=== PATIENT | female | born 1995 | race Caucasian/White ===

== ENCOUNTER 2018-06-05 10:26 | Inpatient (IN) ==
[2018-06-05] MEDS ORDERED: Isovue-370 500 ML BOTTLE IVP ONE (10:53)
[2018-06-05] MEDS ORDERED: Ketorolac 15 MG/ML VIAL IVP ONE (10:53)
[2018-06-05] MEDS ORDERED: Ondansetron 4 MG/2 ML VIAL IVP ONE (10:53)
[2018-06-05] MEDS ORDERED: 0.9 % Sodium Chloride 1,000 ML IVC ONE ×4 (10:53→18:42)
--- NOTE | 2018-06-05 10:58 | Emergency Department Note ---
Disposition Clinical Impression: Pyelonephritis Sepsis Qualifiers: Sepsis type: sepsis due to unspecified organism Qualified Code(s): A41.9 - Sepsis, unspecified organism Disposition: Admitted As Inpatient Condition: Fair Referrals: NONE,PCP [Primary Care Provider] - Forms: ED Satisfaction Letter General Adult HPI - General Chief complaint: ED Urogenital-Female Stated complaint: Kidney stone Time Seen by Provider: 06/05/18 10:31 Source: patient Limitations: no limitations Nursing Notes Reviewed: Yes Vital Signs Reviewed: Yes - History of Present Illness HPI Narrative: 23 year old female with history of kidney stone presents with right flank pain. She started right flank pain a week ago. It got very bad yesterday. Associate with nausea and vomited once at 11 pm last night. Pt felt some burning sensation at the end of urinating. Pt felt chills and temperature was 102 last night. Not No history of diabetes. Onset (ago): week(s) (1) Location: right Pain Scale: 8 Consistency: constant - Related Data Allergies Allergy/AdvReac Type Severity Reaction Status Date / Time Amoxicillin AdvReac Rash Verified 06/05/18 10:38 Constitutional: Reports: chills Eyes: Reports: eye pain ENT ED: Reports: ear pain Cardiovascular: Reports: chest pain Respiratory: Reports: cough Gastrointestinal: Reports: nausea, vomiting. Denies: abdominal pain Genitourinary: Reports: dysuria. Denies: urgency, frequency Musculoskeletal: Reports: back pain (right flank pain). Denies: neck pain Integumentary: Denies: rash Neurological: Denies: headache Psychiatric: Denies: anxiety Endocrine: Denies: fatigue Hematological/Lymphatic: Denies: easy bleeding Allergic/Immunologic: Denies: facial swelling Past Medical History - Past Medical History Medical history: Reports: kidney stones Psychiatric history: Reports: anxiety - Social History Smoking Status: Never smoker Smokeless Tobacco Status: No Alcohol use: Reports: occasionally Drug use: Reports: none Physical Exam - General Limitations: no limitations General appearance: alert, in no apparent distress - Head Head exam: atraumatic - Eye Eye exam: Present: normal appearance - ENT ENT exam: normal exam - Neck Neck exam: Present: normal inspection - Chest Chest inspection: Present: normal inspection - Respiratory Respiratory exam: Present: normal lung sounds bilaterally. Absent: respiratory distress, wheezes - Cardiovascular Cardiovascular exam: Present: tachycardia - Abdominal Exam Abdominal exam: Present: soft, tenderness Abdominal tenderness: Present: RUQ - Extremities Exam Extremities exam: Present: normal inspection, full ROM. Absent: tenderness - Back Exam Back exam: Present: normal inspection, full ROM, CVA tenderness (R) - Neurological Exam Neurological exam: Present: alert, oriented X3 - Psychiatric Psychiatric exam: Present: normal affect, normal mood - Skin Skin exam: Present: warm, intact Course Vital Signs Temperature 99.5 F 06/05/18 10:34 Pulse Rate 121 06/05/18 10:34 Respiratory Rate 16 06/05/18 10:34 Blood Pressure 88/59 06/05/18 10:34 O2 Sat by Pulse Oximetry 99 06/05/18 10:34 Temperature 99.5 F 06/05/18 10:34 Pulse Rate 105 06/05/18 13:11 Respiratory Rate 17 06/05/18 13:11 Blood Pressure 113/61 06/05/18 13:11 O2 Sat by Pulse Oximetry 100 06/05/18 13:11 Oxygen Delivery Oxygen Delivery Room Air Medical Decision Making - [facility] Narrative Medical decision making narrative: 23 year old female with history of kidney stone presents with right flank pain for a week and got worse since yesterday. Associate with nausea, vomiting, chills and fever. Physical exam: temperature 99.5, pulse 121, BP 88/59, RUQ tender to palpation, right CVA tender to percussion. Pt's presentation meet the criterial of sepsis, blood culture ordered, IV fluids, and antibiotics started. Labs: white cell 13. lactic acid negative. UA: large amount of blood and leukocyte. CT indicated: multifocal pylonepheritis. Karen Guadalupe has seen the patient and agrees to admit patient for further evaluation. - Lab Data Lab results reviewed: Yes I reviewed the patient's lab results. Result diagrams: 06/05/18 11:15 06/05/18 11:15 Lab Results 06/05/18 06/05/18 06/05/18 Range/Units 11:02 11:02 11:15 WBC 13.5 H (4.3-11.1) K/mcL RBC 4.61 (3.82-4.97) M/mcL Hgb 13.6 (11.5-15.4) g/dL Hct 39.7 (35.3-44.9) % MCV 86.1 (83.0-100.0) fL MCH 29.5 (28.0-33.3) pg MCHC 34.3 (31.6-35.5) g/dL RDW 12.0 (11.5-14.5) % Plt Count 197 (140-400) K/mcL MPV 9.6 (9.4-12.4) fL Immature Gran % 0.7 (0-4) % Seg Neutrophils % 85.4 % Lymphocytes % 7.8 % Monocytes % 5.9 % Eosinophils % 0.1 % Basophils % 0.1 % Neutrophils # 11.5 H (1.6-8.9) K/mcL Lymphocytes # 1.1 (0.6-4.6) K/mcL Monocytes # 0.8 (0.0-1.3) K/mcL Eosinophils # 0.0 (0.0-0.6) K/mcL Basophils # 0.0 (0.0-0.2) K/mcL Sodium (136-145) mEq/L Potassium (3.5-5.1) mEq/L Chloride (98-107) mEq/L Carbon Dioxide (23-29) mEq/L BUN (6-20) mg/dL Creatinine (0.60-1.20) mg/dL Est GFR ( Amer) (> 60) Est GFR (Non-Af Amer) (> 60) BUN/Creatinine Ratio (6-26) Glucose (70-105) mg/dL Calculated Osmolality (280-300) Lactic Acid (0.5-2.2) mmol/L Calcium (8.6-10.3) mg/dL Total Bilirubin (0.3-1.0) mg/dL AST (13-39) Units/L ALT (7-52) Units/L Alkaline Phosphatase (34-104) Units/L Serum Total Protein (6.4-8.9) g/dL Albumin (3.5-5.7) g/dL Globulin (2.4-3.5) g/dL Albumin/Globulin Ratio (1.1-2.2) Lipase (11-82) Units/L Urine Color Dark Yellow (Yellow) Urine Clarity Turbid A (Clear) Urine pH 6.0 (5.0-8.0) pH Units Ur Specific [place] 1.015 (1.010-1.025) Urine Protein >=300 H (Neg-Trace) mg/dL Urine Glucose (UA) Normal (Normal) mg/dL Urine Ketones 15 H (Negative) mg/dL Urine Blood Large H (Negative) Urine Nitrite Negative (Negative) Urine Bilirubin Negative (Negative) Urine Urobilinogen Normal (Normal) mg/dL Ur Leukocyte Esterase Large H (Negative) Urine Microscopic RBC 0-3 (0-3) per hpf Urine Microscopic WBC TNTC H (0-3) per hpf Ur Squamous Epith Cells Many H (None-Few) per lpf Amorphous Sediment Moderate H (Few) Urine Bacteria Moderate H (None-Few) per hpf Urine Mucus Few (Few) Urine Yeast Test Not Performed Ur Culture Indicated? NO. A (NO) Urine Test Negative (Negative) 06/05/18 06/05/18 Range/Units 11:15 11:17 WBC (4.3-11.1) K/mcL RBC (3.82-4.97) M/mcL Hgb (11.5-15.4) g/dL Hct (35.3-44.9) % MCV (83.0-100.0) fL MCH (28.0-33.3) pg MCHC (31.6-35.5) g/dL RDW (11.5-14.5) % Plt Count (140-400) K/mcL MPV (9.4-12.4) fL Immature Gran % (0-4) % Seg Neutrophils % % Lymphocytes % % Monocytes % % Eosinophils % % Basophils % % Neutrophils # (1.6-8.9) K/mcL Lymphocytes # (0.6-4.6) K/mcL Monocytes # (0.0-1.3) K/mcL Eosinophils # (0.0-0.6) K/mcL Basophils # (0.0-0.2) K/mcL Sodium 136 (136-145) mEq/L Potassium 3.3 L (3.5-5.1) mEq/L Chloride 101 (98-107) mEq/L Carbon Dioxide 23 (23-29) mEq/L BUN 8 (6-20) mg/dL Creatinine 0.91 (0.60-1.20) mg/dL Est GFR ( Amer) > 60 (> 60) Est GFR (Non-Af Amer) > 60 (> 60) BUN/Creatinine Ratio 9 (6-26) Glucose 138 H (70-105) mg/dL Calculated Osmolality 283 (280-300) Lactic Acid 1.7 (0.5-2.2) mmol/L Calcium 9.3 (8.6-10.3) mg/dL Total Bilirubin 1.6 H (0.3-1.0) mg/dL AST 11 L (13-39) Units/L ALT 8 (7-52) Units/L Alkaline Phosphatase 65 (34-104) Units/L Serum Total Protein 7.1 (6.4-8.9) g/dL Albumin 4.5 (3.5-5.7) g/dL Globulin 2.6 (2.4-3.5) g/dL Albumin/Globulin Ratio 1.7 (1.1-2.2) Lipase 6 L (11-82) Units/L Urine Color (Yellow) Urine Clarity (Clear) Urine pH (5.0-8.0) pH Units Ur Specific [place] (1.010-1.025) Urine Protein (Neg-Trace) mg/dL Urine Glucose (UA) (Normal) mg/dL Urine Ketones (Negative) mg/dL Urine Blood (Negative) Urine Nitrite (Negative) Urine Bilirubin (Negative) Urine Urobilinogen (Normal) mg/dL Ur Leukocyte Esterase (Negative) Urine Microscopic RBC (0-3) per hpf Urine Microscopic WBC (0-3) per hpf Ur Squamous Epith Cells (None-Few) per lpf Amorphous Sediment (Few) Urine Bacteria (None-Few) per hpf Urine Mucus (Few) Urine Yeast Ur Culture Indicated? (NO) Urine Test (Negative) - Radiology Data Radiology results reviewed: Yes I reviewed the patient's radiology results. CT/CT abd pelvis w iv no oral IMPRESSION: 1. Multifocal pyelonephritis of the right kidney, which also involves the right ureter and likely the bladder. Correlation with urinary analysis and cultures is suggested. 2. Nonobstructive bilateral nephrolithiasis. 3. Multiple indeterminate hypodense splenic lesions, which measure up to 1.3 cm in size. These are most likely benign, with multiple splenic hemangiomas a consideration. CT follow-up to document stability, or further evaluation with MRI, is recommended. D/ / Marcelo Andrade MD / Marcelo Andrade MD Interpreting Provider: Marcelo Andrade MD Attestation Statement - Attestation Attestation: I, Zain Haywood, examined this patient and my medical decision-making was reviewed with the WAREHOUSE DELIVERY DRIVER/PA/Advanced Practice Nurse/Resident Physician. I agree with the documented findings, disposition and treatment plan as described except to the extent set forth below. 23-year-old female presents emergency Department with concerns of right flank pain. Patient states pain is been present over the past week however became significantly worse last night. Patient has been vomiting throughout the night. She was hypotensive on initial evaluation, she is tachycardic. She took Flomax yesterday prior to the onset of her symptoms. Patient has a history of kidney stones in the past and this feels similar to that. Patient reports being febrile last night to 102. Denies dysuria or hematuria. Patient states the pain is in the right back and right flank, denies abdominal pain. Denies chest pain or shortness of breath palpitations. Has not syncopized. Denies vaginal bleeding or vaginal discharge. Has a history of multiple stones but has history of multiple stones in the past but has not required procedural intervention in the past. Follows a urologist in [place]. Patient has urinary tract infection on urinalysis. She was given ceftriaxone. Patient has CT of the abdomen and pelvis pending
[2018-06-05 11:16] LABS: Bilirubin,Urine Negative (Negative); Blood,Urine Large (Negative); Clarity,Urine Turbid (Clear); Color,Urine Dark Yellow (Yellow); Glucose,Urine (UA) Normal (Normal); Ketones,Urine 15 mg/dL (Negative); Leukocyte Esterase,Urine Large (Negative); Nitrite,Urine Negative (Negative); Protein,Urine >=300 mg/dL (Neg-Trace); Specific Gravity,Urine 1.015 (1.010-1.025); Urobilinogen,Urine Normal (Normal)
[2018-06-05 11:18] LABS: Bacteria,Urine Moderate per hpf (None-Few); Squamous Epithelial Cell,Urine Many per lpf (None-Few); WBC,Urine TNTC per hpf (0-3)
[2018-06-05 11:31] LABS: Basophils % 0.1 %; Eosinophils % 0.1 %; Hematocrit 39.7 % (35.3-44.9); Hemoglobin 13.6 g/dL (11.5-15.4); Immature Granulocytes % 0.7 % (0-4); Lymphocytes # 1.1 K/mcL (0.6-4.6); Lymphocytes % 7.8 %; Mean Corpuscular HGB Conc 34.3 g/dL (31.6-35.5); Mean Corpuscular Hemoglobin 29.5 pg (28.0-33.3); Mean Corpuscular Volume 86.1 fL (83.0-100.0); Mean Platelet Volume 9.6 fL (9.4-12.4); Monocytes # 0.8 K/mcL (0.0-1.3); Monocytes % 5.9 %; Neutrophils # 11.5 K/mcL (1.6-8.9); Platelet Count 197 K/mcL (140-400); Red Blood Count 4.61 M/mcL (3.82-4.97); Segmented Neutrophils % 85.4 %
[2018-06-05 11:41] LABS: Amorphous Sediment,Urine Moderate (Few); Mucus,Urine Few (Few); RBC,Urine 0-3 per hpf (0-3)
[2018-06-05 11:51] LABS: Alanine Aminotransferase 8 Units/L (7-52); Albumin 4.5 g/dL (3.5-5.7); Albumin/Globulin Ratio 1.7 (1.1-2.2); Alkaline Phosphatase 65 Units/L (34-104); Aspartate Amino Transferase 11 Units/L (13-39); BUN/Creatinine Ratio 9 (6-26); Bilirubin,Total 1.6 mg/dL (0.3-1.0); Blood Urea Nitrogen 8 mg/dL (6-20); Calcium 9.3 mg/dL (8.6-10.3); Carbon Dioxide 23 mEq/L (23-29); Chloride 101 mEq/L (98-107); Globulin 2.6 g/dL (2.4-3.5); Glucose 138 mg/dL (70-105); Lipase 6 Units/L (11-82); Osmolality,Calculated 283 (280-300); Potassium 3.3 mEq/L (3.5-5.1); Sodium 136 mEq/L (136-145); Total Protein 7.1 g/dL (6.4-8.9); eGFR For Non-African Americans > 60 (> 60)
[2018-06-05] MEDS ORDERED: Levofloxacin 750 MG/150 ML 750 MG/150 ML BAG IVPB ONE (11:51)
[2018-06-05] MEDS ORDERED: *HR* FentaNYL (PF) 100 MCG/2 ML VIAL IVP ONE (13:12)
--- NOTE | 2018-06-05 14:36 | Internal Med History&Physical ---
Date of Encounter: 06/05/18 Time of Encounter: 14:46 Internal Medicine - H&P: HPI Chief complaint: nausea, vomiting, chills Admitted From: Home Plans for Post Hospital Care: Home History of present illness: Ms. Brizuela is a 23 year old female past medical history of anxiety, depression and kidney stones come in with complain of fevers chills nausea and vomiting for last 24 hours. Patient mentioned she started having right-sided back pain for about 3-5 days. However past 24 hours she started having nausea vomiting and chills and fever which she measured to be 102.4. Her back pain has also significantly worsened over the past 1-2 days. She has history of kidney stones and was seen by urology in past. Last kidney stone was few months ago. Denies any use of antibiotic in the past 3-4 months. Has allergy to amoxicillin and sulfa medication. Does have family history of kidney stone in father. Denies any difficulty breathing, chest pain, abdominal pain, difficulty passing urine or stool. Denies any diarrhea. Patient had labwork done in ER showed white count of 13.3 potassium 3.3 lactic acid 1.7, urine with significant protein and immaterial. Patient has CT abdomen and pelvis which showed multifocal pyelonephritis on the right kidney, hypodense lesions in the spleen and nonobstructive bilateral nephrolithiasis. Past Med Surg Social Fam HX - Past Medical History Medical history: kidney stones Psychiatric history: anxiety, depression - Past Surgical History Additional surgical history: ovarian cyst removed - Social History Smoking Status: Never smoker Smokeless Tobacco Status: No Alcohol use: occasionally Drug use: none - Additional Family History Additional family history: Father with HTN and kidney stones Internal Medicine - H&P: Meds Sertraline [Zoloft] 50 mg PO DAILY 06/05/18 [History] Allergy/AdvReac Type Severity Reaction Status Date / Time Amoxicillin AdvReac Rash Verified 06/05/18 10:38 All Systems PM: A 10-system review of systems was performed and is negative for pertinent findings except as documented above in the HPI. - Constitutional Vitals: Temp Pulse Resp BP Pulse Ox 99.5 F 105 17 113/61 100 06/05/18 10:34 06/05/18 13:11 06/05/18 13:11 06/05/18 13:11 06/05/18 13:11 Exam: Constitutional: Vitals as noted. Conversant. mild distress due to pain and chills Eyes : Sclera white, conjunctiva clear, no lid lag, PEARLA. ENT : Grossly normal hearing. Oropharyngeal exam unremarkable. Moist mucus membranes. No JVD, no cervical lymphadenopathy. no thyromegaly or mass. Respiratory : Clear to auscultation bilaterally. No accessory muscle use, rales, rhonchi or wheezes Cardiovascular : tachycardic, +S1, +S2. no murmur, gallop, rubs. No chest wall tenderness GI/Abdominal : Soft, Non-distended, normal bowel sounds, Rt CVA tenderness. Musculoskeletal: no deformity noted. no edema or cyanosis. warm extremities, pulses palpable and symmetrical in UE/LE. no calf tenderness. Neurological: AO X3, CN II-XII grossly intact, grossly normal motor and sensory exam. Skin: No skin rash, lesions or ulcers noted. Internal Med - H&P Results - Labs CBC & Chem 7: 06/05/18 11:15 06/05/18 11:15 Labs: Short CBC 06/05/18 Range/Units 11:15 WBC 13.5 H (4.3-11.1) K/mcL Hgb 13.6 (11.5-15.4) g/dL Hct 39.7 (35.3-44.9) % Plt Count 197 (140-400) K/mcL Neutrophils # 11.5 H (1.6-8.9) K/mcL BMP 06/05/18 11:15 Sodium 136 Potassium 3.3 L Chloride 101 Carbon Dioxide 23 BUN 8 Creatinine 0.91 Glucose 138 H Calcium 9.3 Liver Function 06/05/18 Range/Units 11:15 Total Bilirubin 1.6 H (0.3-1.0) mg/dL AST 11 L (13-39) Units/L ALT 8 (7-52) Units/L Alkaline Phosphatase 65 (34-104) Units/L Albumin 4.5 (3.5-5.7) g/dL Urine 06/05/18 Range/Units 11:02 Urine Color Dark Yellow (Yellow) Urine Clarity Turbid A (Clear) Urine pH 6.0 (5.0-8.0) pH Units Ur Specific [place] 1.015 (1.010-1.025) Urine Protein >=300 H (Neg-Trace) mg/dL Urine Glucose (UA) Normal (Normal) mg/dL - Impressions ITS Impressions Abdomen/Pelvis CT 06/05/18 10:53 IMPRESSION: 1. Multifocal pyelonephritis of the right kidney, which also involves the right ureter and likely the bladder. Correlation with urinary analysis and cultures is suggested. 2. Nonobstructive bilateral nephrolithiasis. 3. Multiple indeterminate hypodense splenic lesions, which measure up to 1.3 cm in size. These are most likely benign, with multiple splenic hemangiomas a consideration. CT follow-up to document stability, or further evaluation with MRI, is recommended. D/ / 06/05/2018 13:41:31 Marcelo Andrade MD / doris Interpreting Provider: Marcelo Andrade MD - Assessment and plan (1) Sepsis Current Visit: Yes Status: Acute Assessment and plan: - Likely related to pyelonephritis - We will do 1 more liter of dermal saline and continue LR at 100/hr - Continue Levaquin - Follow-up urine and blood cultures. Monitor closely for next 24-48 hours. May have 2 broaden coverage if continues to have fevers given the previous kidney stones. Qualifiers: Sepsis type: sepsis due to unspecified organism Qualified Code(s): A41.9 - Sepsis, unspecified organism (2) Hypokalemia Current Visit: Yes Status: Acute Assessment and plan: - repelted (3) Anxiety and depression Current Visit: Yes Status: Acute Assessment and plan: Continue home medications (4) Pyelonephritis Current Visit: Yes Status: Acute Assessment and plan: As above - Time Spent With Patient Total time spent is greater than 50% in coordination of care (as documented) at patient's floor/unit and/or counseling patient:
[2018-06-05] MEDS ORDERED: Naloxone 0.4 MG/ML INJ IVP PRN (14:46)
[2018-06-05] MEDS ORDERED: *HR* FentaNYL (PF) 100 MCG/2 ML VIAL IVP PRN (14:49)
[2018-06-05] MEDS ORDERED: Ketorolac 15 MG/ML VIAL IM PRN (14:49)
[2018-06-05] MEDS ORDERED: Ondansetron 4 MG/2 ML VIAL IVP PRN (14:50)
[2018-06-05] MEDS: Acetaminophen 325 MG TABLET PO PRN ×2 (14:55→20:22)
[2018-06-05] MEDS: Ringers Solution, Lactated 1,000 ML IVC SCH (17:35)
[2018-06-05] MEDS: Ketorolac 15 MG/ML VIAL IVP PRN (18:58)
[2018-06-06] MEDS: Acetaminophen 325 MG TABLET PO PRN ×3 (02:25→19:01)
[2018-06-06] MEDS: Ringers Solution, Lactated 1,000 ML IVC SCH ×2 (04:00→14:31)
[2018-06-06 07:17] LABS: Basophils % 0.3 %; Eosinophils % 0.2 %; Hematocrit 33.8 % (35.3-44.9); Immature Granulocytes % 0.7 % (0-4); Lymphocytes # 1.3 K/mcL (0.6-4.6); Lymphocytes % 12.5 %; Mean Corpuscular HGB Conc 33.4 g/dL (31.6-35.5); Mean Corpuscular Hemoglobin 29.8 pg (28.0-33.3); Mean Corpuscular Volume 89.2 fL (83.0-100.0); Mean Platelet Volume 9.7 fL (9.4-12.4); Monocytes # 0.7 K/mcL (0.0-1.3); Monocytes % 6.6 %; Neutrophils # 8.4 K/mcL (1.6-8.9); Platelet Count 149 K/mcL (140-400); Red Blood Count 3.79 M/mcL (3.82-4.97); Red Cell Distribution Width 12.3 % (11.5-14.5); Segmented Neutrophils % 79.7 %
[2018-06-06 07:23] LABS: Hemoglobin 11.3 g/dL (11.5-15.4)
[2018-06-06 07:36] LABS: BUN/Creatinine Ratio 11 (6-26); Blood Urea Nitrogen 9 mg/dL (6-20); Calcium 8.5 mg/dL (8.6-10.3); Carbon Dioxide 22 mEq/L (23-29); Chloride 110 mEq/L (98-107); Glucose 108 mg/dL (70-105); Osmolality,Calculated 287 (280-300); Potassium 4.1 mEq/L (3.5-5.1); Sodium 139 mEq/L (136-145); eGFR For Non-African Americans > 60 (> 60)
[2018-06-06] MEDS: Ketorolac 15 MG/ML VIAL IVP PRN ×2 (08:04→18:25)
[2018-06-06] MEDS: Levofloxacin 750 MG/150 ML 750 MG/150 ML BAG IVPB SCH (08:04)
--- NOTE | 2018-06-06 10:03 | Internal Med Progress Note ---
Hospitalist Progress Note - Encounter Date of Encounter: 06/06/18 Time of Encounter: 10:03 - Subjective Interval History: Patient was seen and examined at bedside currently states her pain is controlled has been tolerating oral intake. Did discuss treatment plan the patient verbalized understanding - Exam Vitals: Temp Pulse Resp BP Pulse Ox 98.9 F 92 15 100/67 99 06/06/18 06:29 06/06/18 06:29 06/06/18 06:29 06/06/18 06:29 06/06/18 06:29 Exam: Constitutional: Vitals as noted. Conversant. mild distress due to pain and chills Eyes : Sclera white, conjunctiva clear, no lid lag, PEARLA. ENT : Grossly normal hearing. Oropharyngeal exam unremarkable. Moist mucus membranes. No JVD, no cervical lymphadenopathy. no thyromegaly or mass. Respiratory : Clear to auscultation bilaterally. No accessory muscle use, rales, rhonchi or wheezes Cardiovascular : tachycardic, +S1, +S2. no murmur, gallop, rubs. No chest wall tenderness GI/Abdominal : Soft, Non-distended, normal bowel sounds, Rt CVA tenderness. Musculoskeletal: no deformity noted. no edema or cyanosis. warm extremities, pulses palpable and symmetrical in UE/LE. no calf tenderness. Neurological: AO X3, CN II-XII grossly intact, grossly normal motor and sensory exam. Skin: No skin rash, lesions or ulcers noted. - Assessment and Plan (1) Sepsis Current Visit: Yes Status: Acute Assessment and Plan: - Likely related to pyelonephritis - We will do 1 more liter of dermal saline and continue LR at 100/hr - Continue Levaquin - Follow-up urine and blood cultures. Monitor closely for next 24-48 hours. May have 2 broaden coverage if continues to have fevers given the previous kidney stones. 06/06 Patient states she feels much improved today-white count is down no fever Urine and blood cultures are pending Continue with Levaquin (2) Pyelonephritis Current Visit: Yes Status: Acute Assessment and Plan: Patient states she is much improved today eating and tolerating oral intake Pain currently controlled Continue with Zofran for nausea Continue with Levaquin blood cultures and urine cultures are pending (3) Hypokalemia Current Visit: Yes Status: Acute Assessment and Plan: - Resolved continue to monitor and replace as needed (4) Anxiety and depression Current Visit: Yes Status: Acute Assessment and Plan: Continue home medications - Time Spent with Patient Total time spent is greater than 50% in coordination of care (as documented) at patient's floor/unit and/or counseling patient: Internal Medicine: Result - Labs CBC & Chem 7: 06/06/18 07:06 06/06/18 07:06 Labs: Short CBC 06/05/18 06/06/18 Range/Units 11:15 07:06 WBC 13.5 H 10.6 (4.3-11.1) K/mcL Hgb 13.6 11.3 L D (11.5-15.4) g/dL Hct 39.7 33.8 L (35.3-44.9) % Plt Count 197 149 (140-400) K/mcL Neutrophils # 11.5 H 8.4 (1.6-8.9) K/mcL BMP 06/05/18 06/06/18 11:15 07:06 Sodium 136 139 Potassium 3.3 L 4.1 Chloride 101 110 H Carbon Dioxide 23 22 L BUN 8 9 Creatinine 0.91 0.85 Glucose 138 H 108 H Calcium 9.3 8.5 L Liver Function 06/05/18 Range/Units 11:15 Total Bilirubin 1.6 H (0.3-1.0) mg/dL AST 11 L (13-39) Units/L ALT 8 (7-52) Units/L Alkaline Phosphatase 65 (34-104) Units/L Albumin 4.5 (3.5-5.7) g/dL Urine 06/05/18 Range/Units 11:02 Urine Color Dark Yellow (Yellow) Urine Clarity Turbid A (Clear) Urine pH 6.0 (5.0-8.0) pH Units Ur Specific [place] 1.015 (1.010-1.025) Urine Protein >=300 H (Neg-Trace) mg/dL Urine Glucose (UA) Normal (Normal) mg/dL - Impressions Impressions Abdomen/Pelvis CT 06/05/18 10:53 IMPRESSION: 1. Multifocal pyelonephritis of the right kidney, which also involves the right ureter and likely the bladder. Correlation with urinary analysis and cultures is suggested. 2. Nonobstructive bilateral nephrolithiasis. 3. Multiple indeterminate hypodense splenic lesions, which measure up to 1.3 cm in size. These are most likely benign, with multiple splenic hemangiomas a consideration. CT follow-up to document stability, or further evaluation with MRI, is recommended. D/ / 06/05/2018 13:41:31 Marcelo Andrade MD / doris Interpreting Provider: Marcelo Andrade MD - VTE Reasons for not Prescribing Prophylaxis: Treatment not Indicated - Low risk for VTE Consult Discharge Plan - Plan Referrals: NONE,PCP [Primary Care Provider] - (1) Sepsis Qualifiers: Sepsis type: sepsis due to unspecified organism Qualified Code(s): A41.9 - Sepsis, unspecified organism
[2018-06-06] MEDS ORDERED: *HR* OxyCODONE Immed Rel 5 MG TABLET PO PRN (12:33)
[2018-06-06] MEDS ORDERED: *HR* Promethazine 25 MG/ML VIAL IVP PRN (21:23)
[2018-06-06] MEDS: *HR* HYDROcodone/Acet 5/325 mg TABLET PO PRN (22:30)
[2018-06-07] MEDS: Ringers Solution, Lactated 1,000 ML IVC SCH (00:12)
[2018-06-07] MEDS: Acetaminophen 325 MG TABLET PO PRN ×2 (04:07→17:21)
[2018-06-07] MEDS ORDERED: Ibuprofen 600 MG TABLET PO ONE (04:18)
[2018-06-07 07:42] LABS: Basophils % 0.2 %; Eosinophils % 0.5 %; Hematocrit 30.8 % (35.3-44.9); Hemoglobin 10.5 g/dL (11.5-15.4); Immature Granulocytes % 0.6 % (0-4); Lymphocytes # 0.7 K/mcL (0.6-4.6); Lymphocytes % 11.1 %; Mean Corpuscular HGB Conc 34.1 g/dL (31.6-35.5); Mean Corpuscular Hemoglobin 29.7 pg (28.0-33.3); Mean Corpuscular Volume 87.3 fL (83.0-100.0); Mean Platelet Volume 10.2 fL (9.4-12.4); Monocytes # 0.5 K/mcL (0.0-1.3); Monocytes % 6.9 %; Neutrophils # 5.4 K/mcL (1.6-8.9); Platelet Count 159 K/mcL (140-400); Red Blood Count 3.53 M/mcL (3.82-4.97); Red Cell Distribution Width 12.2 % (11.5-14.5); Segmented Neutrophils % 80.7 %
[2018-06-07 07:45] LABS: BUN/Creatinine Ratio 7 (6-26); Blood Urea Nitrogen 5 mg/dL (6-20); Calcium 8.3 mg/dL (8.6-10.3); Carbon Dioxide 23 mEq/L (23-29); Chloride 106 mEq/L (98-107); Glucose 92 mg/dL (70-105); Osmolality,Calculated 283 (280-300); Potassium 3.5 mEq/L (3.5-5.1); Sodium 138 mEq/L (136-145); eGFR For Non-African Americans > 60 (> 60)
[2018-06-07] MEDS: *HR* HYDROcodone/Acet 5/325 mg TABLET PO PRN (07:58)
[2018-06-07] MEDS: Levofloxacin 750 MG/150 ML 750 MG/150 ML BAG IVPB SCH (07:58)
--- NOTE | 2018-06-07 14:09 | Internal Med Progress Note ---
Hospitalist Progress Note - Encounter Date of Encounter: 06/07/18 Time of Encounter: 09:00 - Subjective Interval History: Patient still have fever overnight. No nausea or vomiting. Improved the right flank pain. Denies dysuria. - Exam Vitals: Temp Pulse Resp BP Pulse Ox 97.8 F 61 16 156/80 92 06/07/18 11:17 06/07/18 11:17 06/07/18 11:17 06/07/18 11:17 06/07/18 11:17 Exam: Constitutional: Vitals as noted. Conversant. in NAD Eyes : Sclera white, conjunctiva clear, no lid lag, PEARLA. ENT : Grossly normal hearing. Oropharyngeal exam unremarkable. Moist mucus membranes. No JVD, no cervical lymphadenopathy. no thyromegaly or mass. Respiratory : Clear to auscultation bilaterally. No accessory muscle use, rales, rhonchi or wheezes Cardiovascular : tachycardic, +S1, +S2. no murmur, gallop, rubs. No chest wall tenderness GI/Abdominal : Soft, Non-distended, normal bowel sounds, Rt CVA tenderness. Musculoskeletal: no deformity noted. no edema or cyanosis. warm extremities, pulses palpable and symmetrical in UE/LE. no calf tenderness. Neurological: AO X3, CN II-XII grossly intact, grossly normal motor and sensory exam. Skin: No skin rash, lesions or ulcers noted. - Assessment and Plan (1) Pyelonephritis Current Visit: Yes Status: Acute Assessment and Plan: Patient states she is much improved, still has fever Pain currently controlled Continue with Zofran for nausea Continue with Levaquin. blood cultures is pending. Urine culture shows non- diagnostic. Will continue current antibiotic as patient's symptoms has improved on Levaquin. CT abdomen shows no hydronephrosis/obstruction (2) Sepsis Current Visit: Yes Status: Acute Assessment and Plan: Due to pyelonephritis. WBC and HRget down, resolved now (3) Hypokalemia Current Visit: Yes Status: Acute Assessment and Plan: - Resolved continue to monitor and replace as needed (4) Anxiety and depression Current Visit: Yes Status: Acute Assessment and Plan: Continue home medications DVT Prophylaxis: Patient is young and ambulating well. Encourage ambulation. Expect short hospitalization - Time Spent with Patient Total time spent is greater than 50% in coordination of care (as documented) at patient's floor/unit and/or counseling patient: 30 minutes 25 - 35 minutes Plan of Care Discussed with: patient Internal Medicine: Result - Labs CBC & Chem 7: 06/07/18 06:31 06/07/18 06:31 Labs: Short CBC 06/07/18 Range/Units 06:31 WBC 6.7 (4.3-11.1) K/mcL Hgb 10.5 L (11.5-15.4) g/dL Hct 30.8 L (35.3-44.9) % Plt Count 159 (140-400) K/mcL Neutrophils # 5.4 (1.6-8.9) K/mcL BMP 06/07/18 06:31 Sodium 138 Potassium 3.5 Chloride 106 Carbon Dioxide 23 BUN 5 L Creatinine 0.70 Glucose 92 Calcium 8.3 L - VTE Reasons for not Prescribing Prophylaxis: Treatment not Indicated - Low risk for VTE Consult Discharge Plan - Plan Referrals: NONE,PCP [Primary Care Provider] - (2) Sepsis Qualifiers: Sepsis type: sepsis due to unspecified organism Qualified Code(s): A41.9 - Sepsis, unspecified organism
[2018-06-08] MEDS: Acetaminophen 325 MG TABLET PO PRN (03:10)
[2018-06-08 05:19] LABS: Basophils % 0.3 %; Eosinophils % 0.3 %; Hematocrit 31.7 % (35.3-44.9); Hemoglobin 10.8 g/dL (11.5-15.4); Immature Granulocytes % 0.7 % (0-4); Lymphocytes # 0.9 K/mcL (0.6-4.6); Lymphocytes % 14.8 %; Mean Corpuscular HGB Conc 34.1 g/dL (31.6-35.5); Mean Corpuscular Hemoglobin 29.2 pg (28.0-33.3); Mean Corpuscular Volume 85.7 fL (83.0-100.0); Monocytes # 0.5 K/mcL (0.0-1.3); Monocytes % 7.6 %; Neutrophils # 4.5 K/mcL (1.6-8.9); Platelet Count 184 K/mcL (140-400); Red Cell Distribution Width 12.2 % (11.5-14.5); Segmented Neutrophils % 76.3 %
[2018-06-08] MEDS: Levofloxacin 750 MG/150 ML 750 MG/150 ML BAG IVPB SCH (08:13)
[2018-06-08] MEDS ORDERED: levoFLOXacin 500 MG TABLET PO ONE (09:38)
[2018-06-08 10:50] VITALS: BP 115/77
--- NOTE | 2018-06-08 11:18 | Discharge Summary ---
- NOTES TO OUTPATIENT PROVIDER Notes to Outpatient Provider: 1. Cont po levaquin 750mg daily for 7 more days to finish a 10 day course. Orders not resulted at time of discharge: Pending orders 06/05/18 11:15 Culture,Blood [BC] Stat Date of Encounter: 06/08/18 Time of Encounter: 10:00 - Discharge Diagnosis (1) Pyelonephritis Priority: Primary Status: Acute (2) Sepsis Priority: Primary Status: Acute Qualifiers: Sepsis type: sepsis due to unspecified organism Qualified Code(s): A41.9 - Sepsis, unspecified organism (3) Hypokalemia Priority: Secondary Status: Acute (4) Anxiety and depression Priority: Secondary Status: Acute Hospital course: Ms. Brizuela is a 23 year old female present to ER for right-sided flank pain, nausea and vomiting with fever. Urinalysis shows UTI. Abdominal CT shows right side pyelonephritis, no obstruction. Patient was treated with IV Levaquin. After treatment, her condition has improved. No further flank pain , nausea, or vomiting. WBC get down to normal. Still have Naeem fever but general condition has improved and I believe patient can be treated with by mouth antibiotic as outpatient. Will DC patient home with by mouth Levaquin to finish a ten-day course. Patient was advised to come back to ER if condition getting worse. I have seen and examined the patient today. Denies flank pain, nausea. Has good intake. Vitals are stable. Encourage patient to drink water for self hydration. Will DC patient home with by mouth Levaquin. Discharge discussed with: patient - Time Spent with Patient Total time spent providing and/or coordinating discharge services: 40 minutes Greater than 30 minutes - Discharge Medications Prescriptions: Acetaminophen [Tylenol] 650 mg PO Q6HR PRN 3 Days #24 tablet PRN Reason: Mild Pain/Fever levoFLOXacin [Levaquin] 750 mg PO DAILY 7 Days #7 tablet Home Medications: Sertraline [Zoloft] 50 mg PO DAILY 06/05/18 [History] Calcium Carbonate/Vitamin D3 [Calcium 500 + Vit D Caplet] 1 tab PO DAILY 06/06/18 [History] Cetirizine HCl [Zyrtec] 10 mg PO DAILY 06/06/18 [History] Cyanocobalamin/Folic Acid [B-12 1,000 Mcg Sub Tablet] 1 tab SL DAILY 06/06/18 [History] Medroxyprogesterone Acetate [Depo-Provera] 150 mg IM Q3M 06/06/18 [History] Multivitamin [One Daily Essential] 1 tab PO DAILY 06/06/18 [History] Acetaminophen [Tylenol] 650 mg PO Q6HR PRN 3 Days #24 tablet 06/08/18 [Rx] levoFLOXacin [Levaquin] 750 mg PO DAILY 7 Days #7 tablet 06/08/18 [Rx] Allergies/Adverse Reactions: Allergy/AdvReac Type Severity Reaction Status Date / Time Amoxicillin AdvReac Rash Verified 06/05/18 10:38 Sulfa (Sulfonamide AdvReac Rash Verified 06/06/18 21:43 Antibiotics) Date of admission: 06/05/18 16:36 Primary care physician: PCP RAO Discharging clinician: Richie Jerez Anticipated date of discharge: 06/08/18 - Constitutional Vitals: Temp Pulse Resp BP Pulse Ox 99.0 F 107 16 115/77 99 06/08/18 10:44 06/08/18 10:44 06/08/18 10:44 06/08/18 10:44 06/08/18 10:44 Exam: Constitutional: Vitals as noted. Conversant. in NAD Eyes : Sclera white, conjunctiva clear, no lid lag, PEARLA. ENT : Grossly normal hearing. Oropharyngeal exam unremarkable. Moist mucus membranes. No JVD, no cervical lymphadenopathy. no thyromegaly or mass. Respiratory : Clear to auscultation bilaterally. No accessory muscle use, rales, rhonchi or wheezes Cardiovascular : +S1, +S2. no murmur, gallop, rubs. No chest wall tenderness GI/Abdominal : Soft, Non-distended, normal bowel sounds, No CVA tenderness. Musculoskeletal: no deformity noted. no edema or cyanosis. warm extremities, pulses palpable and symmetrical in UE/LE. no calf tenderness. Neurological: AO X3, CN II-XII grossly intact, grossly normal motor and sensory exam. Skin: No skin rash, lesions or ulcers noted. - Patient Status Disposition: Home, Self-Care Condition: Good Functional capacity at discharge: independent ambulation - Discharge Instructions Follow Up With: NONE,PCP [Primary Care Provider] - - Diet and Activity Activity: increase activity as tolerated Diet: advance to your usual diet, regular diet - VTE Reasons for not Prescribing Prophylaxis: Treatment not Indicated - Low risk for VTE
[2018-06-09] MEDS ORDERED: levoFLOXacin 750 MG TABLET PO SCH (09:00)
== END 2018-06-08 15:43 | disposition home or self-care (01) | DRG 872 ==
LOC: EMEROOARM 10:26 → 3ANU 10:26
PROVIDERS: ADMIT Internal Medicine; ATTEND Internal Medicine